=== PATIENT | female | born 1995 | race Caucasian/White ===

== ENCOUNTER 2019-12-02 14:00 | Observation (INO) | payer BC, SELFPAY ==
[2019-12-02] VITALS (17 sets, daily range): BP systolic 0–125; BP diastolic 0–79; PULSE 91–116; RESP 16–18; TEMP 36.7–36.8; BMI 29.6
--- NOTE | 2019-12-02 14:49 | USR_ITS ---
PROCEDURE INFORMATION: Exam: US , Limited Exam date and time: 12/02/2019 4:24 PM Age: 24 years old Clinical indication: complicated by abdominal or pelvic pain; Lower; Second trimester; Gestational age or lmp: 27wks 6 days; ; Additional info: Flank and abd pain TECHNIQUE: Imaging protocol: Real-time ultrasound of the maternal uterus with image documentation. Exam focused on the clinical indication. COMPARISON: US renal BI* [id number] 12/02/2019 4:00 PM FINDINGS: Gestation: Intrauterine gestation. Heart rate: heart rate is 133 bpm. Presentation: position is vertex. BIOMETRY: Estimated gestational age: Estimated gestational age by ultrasound is 28 weeks and 3 days. Estimated weight: Estimated weight is 2 lb and 7 oz . Visualized anatomy is grossly within normal limits. This is a limited exam. MATERNAL: Cervix: Cervix not visualized on this limited exam. US/US OB limited [id number] IMPRESSION: Single live intrauterine fetus in vertex position.Estimated gestational age by ultrasound is 28 weeks and 3 days.
[2019-12-02] MEDS: lactated ringers 1,000 ML 999 ML IV (15:03)
[2019-12-02 15:18] LABS: Bilirubin Urine Neg (NEGATIVE); Blood Urine 2+ (Negative); Glucose Urine UA Norm (Normal); Ketones Urine 2+ (Negative); Leukocyte Esterase Urine Negative (Negative); Nitrate Urine Negative (Negative); Protein Urine Neg (Negative); Urine Appearance Hazy (CLEAR); Urine Color Yellow (Yellow); Urobilinogen Urine Norm (Negative); pH Urine 7 (5-7)
[2019-12-02 15:22] LABS: Bacteria Urine 2+; Mucus Urine 1+; Squamous Epithelial Cell Urine 55-80 (0-5); WBC Urine RARE /hpf (0-5)
[2019-12-02 15:23] LABS: Add Urine Culture? No
--- NOTE | 2019-12-02 15:37 | USR_ITS ---
PROCEDURE INFORMATION: Exam: US Retroperitoneal Complete, Kidneys and Bladder. Exam date and time: 12/02/2019 4:14 PM Age: 24 years old Clinical indication: Abdominal pain; Flank; Right; ; Additional info: Renal ultrasound R/O kidney stone TECHNIQUE: Imaging protocol: Real-time ultrasound of the retroperitoneum with image documentation. Complete exam focused on the kidneys and bladder. COMPARISON: No relevant prior studies available. FINDINGS: Right kidney: [id number]-[id number] right hydronephrosis. There is a 5 mm echogenicity in a superior pole calyx of the right kidney possibly representing a stone. No ureteral calculus identified. Left kidney: Normal. No stones. No hydronephrosis. Bladder: Bladder is unremarkable. Bilateral urine jets are seen. US/US renal BI* [id number] IMPRESSION: There is mild to moderate right hydronephrosis. A 5 mm echogenic focus in the superior pole calyx of the right kidney possibly represents a stone. No obstructing ureteral calculus identified.
[2019-12-02] MEDS: lactated ringers 1,000 ML 125 ML IV (16:29)
[2019-12-02] MEDS: fentaNYL 50 mcg/mL INJ 2mL IV ×4 (17:00→21:15)
--- NOTE | 2019-12-02 17:30 | PM.CONSULT ---
Providers/Reason For Consult Reason for Consult*: Kidney stone in Attending Physician: Nick Barahona MD Primary Care Provider: Nick Barahona MD History of Present Illness History of Present Illness ORLANDO SENRA is a 24 year old female Meds/Allergies Home Medications and Allergies Allergies Allergy/AdvReac Type Severity Reaction Status Date / Time ciprofloxacin [From Cipro] Allergy ALGY-Rash Verified 12/02/19 16:56 tramadol Allergy ALGY-Rash Verified 12/02/19 16:56 Current Medications Current Medications Generic Name Dose Route Start Last Admin Trade Name Freq PRN Reason Stop Dose Admin Fentanyl 25 - 100 mcg 12/02/19 16:46 12/02/19 17:00 Sublimaze IV 25 mcg Q1H PRN Administration SEVERE PAIN Lactated Ringer's 1,000 mls @ 125 mls/hr 12/02/19 15:00 12/02/19 16:29 Lactated Ringers IV 125 mls/hr .Q8H CATE Administration Vitals/I&O/Wt Last Vital Signs Pulse 109 H 12/02/19 16:59 Resp 16 12/02/19 17:00 BP 116/71 12/02/19 16:59 12/02/19 12/02/19 12/02/19 06:59 14:59 22:59 Intake Total 1000 / 1000 Output Total 100 / 100 Balance 900 / 900 Weight last 48 hrs Weight 62.064 kg Coding Level of Care Code Acute 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
--- NOTE | 2019-12-02 18:14 | P.PN_ITS ---
Subjective Subjective: Interval history: 24 y/o female with EGA 27 weeks, came to L&D with CC of right CVA pain. She refers previous history of kidney stone in the left kidney. Vitals/I&O/Wt Last Vital Signs Temp 98.3 F 12/02/19 14:50 Pulse 110 H 12/02/19 17:59 Resp 16 12/02/19 18:09 BP 101/64 12/02/19 17:59 12/02/19 12/02/19 12/02/19 06:59 14:59 22:59 Intake Total 1000 / 1000 Output Total 100 / 100 Balance 900 / 900 Weight last 48 hrs Weight 62.064 kg Physical Exam Narrative: EXAM NARRATIVE: GA: Alert and oriented ?3. Lungs: Clear to auscultation bilaterally. Heart: Regular rhythm and rate. Abdomen: Gravid, fundal height correlates dates, nontender. ASSOCIATE VETERINARIAN: SVE; dilation: 0 cm, effacement: 0 %, station: -5, presentation: Vertex, membranes: intact. Extremities: no edema, no cyanosis, no calves pain. heart tracing: Basal rate: 130 bpm, Variability: adequate gestational age, Accelerations: Present, Decelerations: Absent, Contractions: 0. Data Other Labs: Laboratory Tests 12/02/19 14:30 Urine Appearance Hazy A Urine pH 7 Ur Specific [place] 1.010 Urine Protein Neg Urine Glucose (UA) Norm Urine Ketones 2+ H Urine Blood 2+ H Urine Nitrate Negative Urine Bilirubin Neg Urine Urobilinogen Norm Ur Leukocyte Esterase Negative Urine RBC 5-10 H Urine WBC Rare Ur Squamous Epith Cells 55-80 H Ur Transition Epith Cell 5-10 Urine Bacteria 2+ H Urine Mucus 1+ US: Radiologist's impression: [place] [address] Ultrasound Report Signed Patient: Sirena SERNA #: [id number] : 1995Acct#:[id number] Age/Sex: 24 / FADM Date: 12/02/19 Loc: [facility]/Bed: [facility] Attending Dr: Nick Barahona MD Ordering Provider/Ordering MD: Nick Barahona MD Date of Service: 12/02/19 Procedure(s): US renal BI* [id number] Accession Number(s): [id number] Report Number: [id number] PROCEDURE INFORMATION: Exam: US Retroperitoneal Complete, Kidneys and Bladder. Exam date and time: 12/02/2019 4:14 PM Age: 24 years old Clinical indication: Abdominal pain; Flank; Right; ; Additional info: Renal ultrasound R/O kidney stone TECHNIQUE: Imaging protocol: Real-time ultrasound of the retroperitoneum with image documentation. Complete exam focused on the kidneys and bladder. COMPARISON: No relevant prior studies available. FINDINGS: Right kidney: Zodl-de-ivowkasm right hydronephrosis. There is a 5 mm echogenicity in a superior pole calyx of the right kidney possibly representing a stone. No ureteral calculus identified. Left kidney: Normal. No stones. No hydronephrosis. Bladder: Bladder is unremarkable. Bilateral urine jets are seen. US/US renal BI* [id number] IMPRESSION: There is mild to moderate right hydronephrosis. A 5 mm echogenic focus in the superior pole calyx of the right kidney possibly represents a stone. No obstructing ureteral calculus identified. Dictated By:Ana M Hermosillo MD Signed By:Ana M Hermosillo MDSigned Date/Time:12/02/19 DD/ [address] [place] [address] Ultrasound Report Signed Patient: Sirena SERNA #: [id number] : 1995Acct#:[id number] Age/Sex: 24 M Date: 12/02/19 Loc: [facility]/Bed: [facility] Attending Dr: Nick Barahona MD Ordering Provider/Ordering MD: Nick Barahona MD Date of Service: 12/02/19 Procedure(s): US OB limited [id number] Accession Number(s): [id number] Report Number: [id number] PROCEDURE INFORMATION: Exam: US , Limited Exam date and time: 12/02/2019 4:24 PM Age: 24 years old Clinical indication: complicated by abdominal or pelvic pain; Lower; Second trimester; Gestational age or lmp: 27wks 6 days; ; Additional info: Flank and abd pain TECHNIQUE: Imaging protocol: Real-time ultrasound of the maternal uterus with image documentation. Exam focused on the clinical indication. COMPARISON: US renal BI* [id number] 12/02/2019 4:00 PM FINDINGS: Gestation: Intrauterine gestation. Heart rate: heart rate is 133 bpm. Presentation: position is vertex. BIOMETRY: Estimated gestational age: Estimated gestational age by ultrasound is 28 weeks and 3 days. Estimated weight: Estimated weight is 2 lb and 7 oz . Visualized anatomy is grossly within normal limits. This is a limited exam. MATERNAL: Cervix: Cervix not visualized on this limited exam. US/US OB limited [id number] IMPRESSION: Single live intrauterine fetus in vertex position.Estimated gestational age by ultrasound is 28 weeks and 3 days. Dictated By:Ana M Hermosillo MD Signed By:Ana M Hermosilloigned Date/Time:12/02/191648 DD/ 47 A&P Assessment and plan (1) Kidney stone complicating : 24-year-old female with an estimated gestational age of 27+3 weeks. Patient came to labor and delivery complaining of right side pain. She referred history of kidney stones. Ultrasound was ordered subjective of a possible kidney stone in the right kidney, as our also showed moderate hydronephrosis on the right side. Recommendation: urology consult Status: Acute Qualifiers: Trimester: second trimester Qualified Code(s): O26.832 - related renal disease, second trimester; N20.0 - Calculus of kidney (2) with hydronephrosis in second trimester: Status: Acute (3) History of kidney stones: Status: Acute Attestations Medical Necessity Statement*: In my professional opinions per admitting diagnosis. 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
--- NOTE | 2019-12-02 20:17 | PC.NURSE ---
RN at bedside discussimg Dr. Kuhn POC with patient and spouse and that if she leaves tonight before being seen by Dr. Gonzalez that she would be leaving AMA. Patient states that she will discuss her options with her and let this RN know her decision.
--- NOTE | 2019-12-02 21:10 | PC.NURSE ---
patient and spouse have decided that she will no longer leave AMA and that she will stay for the remainder of the night and reevaluate with MD in the morning.
--- NOTE | 2019-12-02 22:36 | PC.NURSE ---
RN assisted patient to bathroom to void, strainer given to patient. Pt reported that she could feel the stone coming out . after assessing the urine, a stone was noted in the strainer. Stone was then placed in a urine specimen cup. Patient reported that she felt much better after passing the stone and that she did not have any pain.
[2019-12-03] VITALS (8 sets, daily range): BP systolic 102–104; BP diastolic 57–66; PULSE 90–97; RESP 14–18; TEMP 36.6–36.7
[2019-12-03] MEDS: fentaNYL 50 mcg/mL INJ 2mL IV ×2 (00:05→04:53)
[2019-12-03] MEDS: lactated ringers 1,000 ML 125 ML IV (00:06)
[2019-12-03] MEDS: acetaminophen 500 mg Tablet 1000 MG PO (07:10)
--- NOTE | 2019-12-03 07:50 | PM.CONSULT ---
Providers/Reason For Consult Consulting Physican/Specialty*: Urology/Gonzalez Reason for Consult*: Urolithiasis a 27-week estimated gestational age . Attending Physician: Nick Barahona MD Primary Care Provider: Nick Barahona MD History of Present Illness History of Present Illness ORLANDO SERNA is a 24 year old female who I evaluated the first time today at the request of Dr. Barahona for right renal colicky symptoms suspicious for obstructing ureteral calculus at 27 weeks estimated gestational age. The baby has done well. There have been no complications related to this event that have been identified in relation to the . Was in this area at their [facility]. She presented yesterday with acute onset of typical severe right renal colicky symptoms. Could not get a comfortable position. The pain was in the flank and radiated down to the right lower quadrant. Had some frequency and urgency. No evidence of UTI on urinalysis. Renal ultrasound showed right hydronephrosis and possibly a upper pole stone. No ureteral stone could be identified. Her pain is been aggressively treated while she was an inpatient and last night she passed a stone with marked improvement in baseline symptoms. She still had some milder pain overnight but that is improving this morning. No fever or chills. She has had some nausea and vomiting related to her medications she believes but does not have any renal colicky symptoms currently. We had a long detailed discussion today regarding the events and interpretation of them. While the ultrasound did show hydronephrosis the stone that was suspected was in the upper pole of the right kidney and would have nothing to do with her current symptoms. Clearly with passage of a small stone there was at least 1 ureteral stone causing the symptoms and with improvement of the symptoms I expect just 1 stone. We discussed also the fact that she has had to stone passage is now in her young life and possibly has an additional stone in her right kidney. Reviewed stone risk reduction strategies. She lives in [facility] and receives care at [place]. I encouraged her to follow-up with urology after the baby has been born assuming she has no further recurrent renal colicky symptoms. Specifically I recommended that she get at least a KUB. Consider potentially a stone risk profile with 24-hour urine etc. The stone will be sent for analysis. I requested a copy this note to be printed for her to carry with her to her home. Encouraged her to call if she has any additional questions. Recommendations: 1. I think she is safe for discharge at this point 2. I think it is reasonable to provide her with some pain medication for potential of recurrent renal colic. I will leave that to Dr. Barahona to decide which based on issues. 3. She can call if she has any further questions for me. Review of Systems Const: Denies: fever(s), chills or body aches Eyes: Denies: change in vision or blurry vision Card: Denies: chest pain or palpitations Resp: Denies: dyspnea, productive cough or non-productive cough GI: Reports: abdominal pain, nausea and vomiting : Reports: flank pain and urinary urgency Musc: Denies: joint swelling or joint redness Skin/Breast: Denies: rash or erythema Neuro: Denies: Slurred speech present or seizure-like activity Psych: Reports: anxiety (Related to the symptoms although much better now) Endo: Denies: flushing or hot flashes Mikel/Lymph: Denies: easy bruising or easy bleeding All/Imm: Denies: urticaria or throat swelling Meds/Allergies Home Medications and Allergies Home Medications Medication Instructions Recorded Confirmed Last Taken Type omeprazole magnesium [Prilosec OTC] 20 mg PO DAILY 12/02/19 12/02/19 12/01/19 22:00 History Allergies Allergy/AdvReac Type Severity Reaction Status Date / Time ciprofloxacin [From Cipro] Allergy ALGY-Rash Verified 12/02/19 16:56 tramadol Allergy ALGY-Rash Verified 12/02/19 16:56 Current Medications Current Medications Generic Name Dose Route Start Last Admin Trade Name Manoloq PRN Reason Stop Dose Admin Fentanyl 25 - 100 mcg 12/02/19 16:46 12/03/19 04:53 Sublimaze IV 50 mcg Q1H PRN Administration SEVERE PAIN Lactated Ringer's 1,000 mls @ 125 mls/hr 12/02/19 15:00 12/03/19 00:06 Lactated Ringers IV 125 mls/hr .Q8H CATE Administration PFSH Acute PFSH: Medical History (Updated 12/03/19 @ 08:05 by Tyrone Gonzalez MD) History of kidney stones Social History (Updated 12/03/19 @ 08:06 by Tyrone Gonzalez MD) Marital status: Additional social history: Lives in [facility]. Has a deer camp in [facility]. 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 Vitals/I&O/Wt Last Vital Signs Temp 98.1 F 12/03/19 02:00 Pulse 90 12/03/19 04:52 Resp 16 12/03/19 04:53 BP 102/57 12/03/19 04:52 12/02/19 12/03/19 12/03/19 22:59 06:59 14:59 Intake Total 1000 / 1000 952.083 / 1952.083 Output Total 500 / 500 500 / 1000 Balance 500 / 500 452.083 / 952.083 Weight last 48 hrs Weight 136 lb 13.243 oz Physical Exam Const: COMMON NORMALS: no acute distress, alert and well nourished GENERAL APPEARANCE: well kempt and well developed ORIENTATION/CONSCIOUSNESS: not confused HENMT: COMMON NORMALS: normocephalic and atraumatic HEAD & SCALP: normocephalic and atraumatic Eye: COMMON NORMALS: conjunctivae normal and no scleral icterus CONJUNCTIVA: Yes conjunctivae normal Neck/C-Spine: COMMON NORMALS: full ROM GENERAL: Yes normal visual inspection Resp: COMMON NORMALS: normal respiratory effort EFFORT & INSPECTION: No labored and No Actively coughing Extremity: COMMON NORMALS: no clubbing, cyanosis or edema Neuro: SENSORIUM/ORIENTATION: Yes alert Psych: COMMON NORMALS: mental status grossly normal and Normal thought process present APPEARANCE: Yes grossly normal and Yes well kempt ATTITUDE: Yes calm and Yes engaged THOUGHT PROCESS: Normal thought process present Data Labs: Other Labs: Laboratory Tests 12/02/19 14:30 Urine Appearance Hazy A Urine pH 7 Ur Specific [place] 1.010 Urine Protein Neg Urine Glucose (UA) Norm Urine Ketones 2+ H Urine Blood 2+ H Urine Nitrate Negative Urine Bilirubin Neg Urine Urobilinogen Norm Ur Leukocyte Carley ase Negative Urine RBC 5-10 H Urine WBC Rare Ur Squamous Epith Cells 55-80 H Ur Transition Epit h Cell 5-10 Urine Bacteria 2+ H Urine Mucus 1+ Imaging^: US: Radiologist's impression: [address] [address] Ultrasound Report Patient: ORLANDO SERNAJony #: [id number] : 1995Acct#:[id number] PROCEDURE INFORMATION: Exam: US Retroperitoneal Complete, Kidneys and Bladder. Exam date and time: 12/02/2019 4:14 PM Age: 24 years old Clinical indication: Abdominal pain; Flank; Right; ; Additional info: Renal ultrasound R/O kidney stone FINDINGS: Right kidney: Tcco-il-xkkjjlja right hydronephrosis. There is a 5 mm echogenicity in a superior pole calyx of the right kidney possibly representing a stone. No ureteral calculus identified. Left kidney: Normal. No stones. No hydronephrosis. Bladder: Bladder is unremarkable. Bilateral urine jets are seen. IMPRESSION: There is mild to moderate right hydronephrosis. A 5 mm echogenic focus in the superior pole calyx of the right kidney possibly represents a stone. No obstructing ureteral calculus identified. Date of Service: 12/02/19 Procedure(s): US OB limited [id number] Accession Number(s): [id number] Report Number: [id number] PROCEDURE INFORMATION: Exam: US , Limited Exam date and time: 12/02/2019 4:24 PM FINDINGS: Gestation: Intrauterine gestation. Heart rate: heart rate is 133 bpm. Presentation: position is vertex. A&P Assessment and plan (1) Right ureteral calculus: Presented with typical right renal colicky symptoms radiating from the right flank down to the right lower quadrant with ultimate spontaneous passage while hospitalized for symptomatic control. I think she is a good candidate for further convalescence at home. She lives in [facility]. Having some pain medication on hand is probably a good idea. Status: Acute (2) Renal colic on right side: Associated with right distal ureteral stone spontaneously passed in the hospital. Much improved after stone passage Status: Acute (3) Hydronephrosis of right kidney: Identified during work-up with ultrasound for renal colicky pain and 27-week estimated gestational age. Possible additional stone in the kidney. Status: Acute (4) History of kidney stones: Spontaneously passed stone about 5 years ago. Possible additional stone in the kidney in addition to the one that she passed while hospitalized Status: Acute Consult Attestations Time Spent in Patient Care: Greater than 35 minutes (>than 50% of time spent in counselling and/or direct pt care on unit). Coding Level of Care Code Acute Pattern Weaver for Chg Fwd Exam Detailed Diagnoses Right ureteral calculus N20.1 Renal colic on right side N23 Hydronephrosis of right kidney N13.30 History of kidney stones Z87.442 Time Spent (min) 50
--- NOTE | 2019-12-07 13:11 | P.DS_ITS ---
Discharge Providers FORM SETTER Date of Admission: 12/02/19 14:00 Date of Discharge: 12/07/19 Attending Provider at Admission: Nick Barahona MD Attending Provider at Discharge: Nick Barahona MD Primary Care Provider: Nick Barahona MD Diagnoses at Discharge Discharge Diagnosis (1) Right ureteral calculus: Status: Acute (2) Renal colic on right side: Status: Acute (3) Hydronephrosis of right kidney: Status: Acute (4) History of kidney stones: Status: Acute Reason for Visit Reason for Visit: Brief History: right side pain Hospital Course Hospital Course: 24 y/o female with EGA 27+4 weeks came to L&D with CC of right side pain. On evaluation right urettheral calculus supected. Urology was coulsulted. Overnight observaqtion with fluid and pain management. During overnight observation she had passed the claculus. SHe was evaluated by urology the following mornig. She was instructed to F/U with obstetric provider LLUV[facility] upon arrival to [place]. Physical Exam Narrative: EXAM NARRATIVE: GA: Alert and oriented ?3. Lungs: Clear to auscultation bilaterally. Heart: Regular rhythm and rate. Abdomen: Gravid, fundal height correlates dates, nontender. LIMEROCK TOWER LOADER: SVE; dilation: 0 cm, effacement: 0 %, station: -5, presentation: Vertex, membranes: intact. Extremities: no edema, no cyanosis, no calves pain. heart tracing: Basal rate: 130 bpm, Variability: adequate gestational age, Accelerations: Present, Decelerations: Absent, Contractions: 0. Discharge Data Data Completed and Pending: Completed Studies During Hospitalization Category Date Time Status US OB limited 768 15 Stat Ultrasound 12/02/19 14:49 Completed US renal BI* [id number] Stat Ultrasound 12/02/19 15:37 Completed Vitals: Last Vital Signs Temp 97.8 F 12/03/19 08:55 Pulse 97 12/03/19 08:55 Resp 16 12/03/19 08:55 BP 104/66 12/03/19 08:55 Discharge Plan Discharge Patient Disposition: Home, Self-Care Prescriptions: Continued omeprazole magnesium [Prilosec OTC] 20 mg Tablet,Delayed Release (Dr/Ec) 20 mg PO DAILY RF: 0 Discharge Orders: Discharge Order (Routine); Ordered 12/03/19 Ordered By: Tyrone Gonzalez Discharge Diet: Regular Discharge Activity: Resume usual activity Patient Instructions: Kidney Stones, OB Undelivered Discharge Activity Restrictions/Additional Instructions: KEEP APPOINTMENT WITH YOUR DOCTOR INSTRUCTED. Discharge Date/Time: 12/03/19 08:55 Discharge Attestations FORM SETTER Time Spent in Discharge Care*: greater than 30 min Specific Discharge Activities: Specific discharge activities: educating patient and educating and/or supporting family/caregiver Coding Level of Care Code Acute Test Engine Mechanic for g Fwd Diagnoses Right ureteral calculus N20.1 Renal colic on right side N23 Hydronephrosis of right kidney N13.30 History of kidney stones Z87.442
== END 2019-12-03 08:55 | disposition home or self-care (01) ==
PROVIDERS: Admitting Provider Obstetrics & Gynecology; PCP Obstetrics & Gynecology; Visit Provider Obstetrics & Gynecology
DX: O26.832 Pregnancy related renal disease, second trimester (principal); Z3A.28 28 weeks gestation of pregnancy; O99.89 Other specified diseases and conditions complicating pregnancy, childbirth and the puerperium; N13.30 Unspecified hydronephrosis; Z87.442 Personal history of urinary calculi; N20.2 Calculus of kidney with calculus of ureter
CPT/HCPCS: 12345; 76770; 76815; 81001; 96374; 96375; 99211; G0378; G0379; J3010